=== PATIENT | male | born 1955 | race Caucasian/White ===

== ENCOUNTER 2017-05-23 14:31 | Inpatient (IN) | payer MEDICARE, OTHER ==
[~2017-05-23] VITALS: Ht 188 cm; Wt 71.2 kg
[2017-05-23] MEDS ORDERED: IV NORMAL SALINE 1000 ML BAG IV ONE ×2 (15:15→16:00)
[2017-05-23 15:30] LABS: BASOPHILS # (AUTO) 0.3 K/uL (0.0-8.0); BASOPHILS % (AUTO) 1.7 % (0.0-2.0); EOSINOPHILS # (AUTO) 0.9 K/uL (0.0-0.7); EOSINOPHILS % (AUTO) 4.9 % (0.0-7.0); HEMATOCRIT 39.1 % (40-50); HEMOGLOBIN 12.7 G/DL (14.0-18.0); LYMPHOCYTES # (AUTO) 1.5 K/UL (0.8-4.8); LYMPHOCYTES % (AUTO) 7.9 % (20.5-51.5); MEAN CORPUSCULAR HEMOGLOBIN 29.3 UUG (27.0-31.0); MEAN CORPUSCULAR HGB CONC 32 g/dL (32.0-37.0); MEAN CORPUSCULAR VOLUME 90.3 FL (82.0-92.0); MONOCYTES # (AUTO) 1.9 K/UL (0.1-1.30); MONOCYTES % (AUTO) 9.9 % (0.0-11.0); NEUTROPHILS # (AUTO) 14.2 K/UL (1.8-8.9); NEUTROPHILS % (AUTO) 75.6 % (38.5-71.5); PLATELET COUNT (AUTO) 414 K/UL (150-450); RED BLOOD CELL COUNT(AUTO) 4.32 MIL/UL (4.7-6.1); WHITE BLOOD COUNT (AUTO) 18.8 K/UL (4.0-11.2)
[2017-05-23] MEDS ORDERED: ACET650T12 PO (15:32)
[2017-05-23] MEDS ORDERED: TRAM50TA2 PO (15:32)
[2017-05-23] MEDS ORDERED: [UNRECOGNIZED DRUG - OTHER] TP (15:32)
[2017-05-23] MEDS ORDERED: RISP2TAB23 PO (15:32)
[2017-05-23] MEDS ORDERED: FAMO-132 PO (15:32)
[2017-05-23] MEDS ORDERED: CARV3.122 PO (15:32)
[2017-05-23] MEDS ORDERED: ATOR20TA PO (15:32)
[2017-05-23] MEDS ORDERED: CHOL20004 PO (15:32)
[2017-05-23] MEDS ORDERED: HYDR-3895 PO (15:32)
[2017-05-23] MEDS ORDERED: TEMA30CA PO (15:32)
[2017-05-23] MEDS ORDERED: SERT25TA PO (15:32)
[2017-05-23] MEDS ORDERED: ASPI-605 PO (15:32)
--- NOTE | 2017-05-23 15:32 | NUR ---
Pt BIB Ambulance from [facility], reports facility reports pt is lethargic, started today.
[2017-05-23 15:38] LABS: *BILIRUBIN,URIN NEGATIVE (NEGATIVE); *BLOOD, URINE Trace-lysed (NEGATIVE); *CLARITY,URINE CLEAR (CLEAR); *COLOR,URINE YELLOW (YELLOW); *KETONES,URINE NEGATIVE (NEGATIVE); *PROTEIN,URINE NEGATIVE (NEGATIVE); *UROBILINOGEN,URINE 0.2 E.U./dl (NORMAL); LEUKOCYTE ESTERASE ,URINE NEGATIVE (NEGATIVE); NITRITE, URINE NEGATIVE (NEGATIVE); PH,URINE 5.5 (5.0-8.0); UGLUCOSE NEGATIVE (NEGATIVE)
[2017-05-23 15:40] LABS: POTASSIUM 3.9 mmol/L (3.5-5.1)
[2017-05-23 15:54] LABS: BILIRUBIN,DIRECT 0.2 mg/dL (0.0-0.2); BILIRUBIN,TOTAL 0.6 mg/dL (0.2-1.0); TOTAL PROTEIN, SERUM 8.9 g/dL (6.4-8.2)
[2017-05-23 15:58] LABS: BACTERIA,URINE NONE SEEN /HPF (NONE SEEN); RBC,URINE 0-3 /HPF (0-3); SQUAMOUS EPITHELIAL CELL,UR FEW /HPF (NONE SEEN); WBC,URINE 0-3 /HPF (0-3)
[2017-05-23] MEDS ORDERED: PIPERACILLIN SODIUM/TAZOBACTAM 3.375 G in IV DEXTROSE 5% 50 ML IV ONE (16:00)
[2017-05-23] MEDS ORDERED: CEFTRIAXONE 1 G in IV DEXTROSE 5% 50 ML IV ONE (16:00)
[2017-05-23] MEDS ORDERED: CEFTRIAXONE 1 G VIAL ONE (17:28)
[2017-05-23] MEDS ORDERED: PIPERACILLIN/TAZOBACTAM/D5W 50 ML IV ONE (17:28)
--- NOTE | 2017-05-23 20:08 | NUR ---
Call placed to [facility], Dr. Hoskins will be paged.
[2017-05-23 21:34] VITALS: BP 154/87
--- NOTE | 2017-05-23 21:45 | NUR ---
PT RECEIVED FROM ED ON GURNEY ACCOMPANIED BY ER STAFF. DIAGNOSIS PNEUMONIA. OBSERVED TO BE APHASIC, DOES NOT COMMUNICATE AND PER ER STAFF PT IS DEAF, PT WAS ALSO NOT ABLE TO COMMUNICATE BY PENCIL AND PAPER. PER REPORT PT IS FROM [place] AND HAS BEEN REFUSING TO EAT, OBSERVED TO BE WEAK. HISTORY OF HTN, CONVULSIONS, PSORIASIS, AND GERD. OTHERWISE PT IS ABL TO AMBULATE WITH GUIDANCE. SKIN NOTED TO SCALY SILVER RED PATCHES ALL OVER BODY. VITAL SIGNS WNL. PT ON ROOM AIR. HEP LOCK TO LEFT FOREARM #20. NO ACUTE DISTRESS NOTED. SAFETY MEASURES PROVIDED.
[2017-05-24 00:09] VITALS: BP 117/66
[2017-05-24] MEDS ORDERED: MORPHINE SULFATE 2 MG/1 ML DISP.SYRIN IV PRN (00:45)
[2017-05-24] MEDS ORDERED: ACETAMINOPHEN 325 MG TABLET PO PRN (00:45)
[2017-05-24] MEDS ORDERED: ONDANSETRON 4 MG/2 ML VIAL IV PRN (00:45)
[2017-05-24] MEDS ORDERED: ALBUTEROL SULFATE 2.5 MG/3 ML NEBU NEB PRN (00:45)
[2017-05-24] MEDS ORDERED: ZOLPIDEM 5 MG TABLET PO PRN (00:45)
[2017-05-24] MEDS ORDERED: ACETAMINOPHEN 325 MG TABLET ONE (01:13)
--- NOTE | 2017-05-24 01:30 | NUR ---
PT IN BED SLEEPING AT THIS TIME. NORMAL SINUS ON TELE MONITOR. GIVEN TYLENOL FOR TEMP 100.7, ASYMPTOMATIC. NO ACUTE DISTRESS NOTED. WILL CONTINUE TO MONITOR FOR SAFETY.
[2017-05-24 04:00] VITALS: BP 110/69
[2017-05-24] MEDS ORDERED: PIPERACILLIN SODIUM/TAZO 3.375 GM VIAL ONE (05:39)
[2017-05-24] MEDS: PIPERACILLIN/TAZOBACTAM/D5W 3.375 G in PREMIXED 1 EACH IV SCH ×3 (05:59→21:04)
[2017-05-24 06:52] LABS: BASOPHILS # (AUTO) 0.1 K/uL (0.0-8.0); BASOPHILS % (AUTO) 0.6 % (0.0-2.0); EOSINOPHILS # (AUTO) 1.4 K/uL (0.0-0.7); EOSINOPHILS % (AUTO) 8.5 % (0.0-7.0); HEMATOCRIT 33.6 % (36.7-47.1); HEMOGLOBIN 11.2 g/dL (12.5-16.3); LYMPHOCYTES # (AUTO) 1.7 K/uL (20.0-40.0); LYMPHOCYTES % (AUTO) 10.8 % (20.5-51.5); MEAN CORPUSCULAR HEMOGLOBIN 30.2 uug (23.8-33.4); MEAN CORPUSCULAR HGB CONC 33 g/dL (32.5-36.3); MEAN CORPUSCULAR VOLUME 90.5 fL (73.0-96.2); MONOCYTES # (AUTO) 1.5 K/uL (2.0-10.0); MONOCYTES % (AUTO) 9.3 % (0.0-11.0); NEUTROPHILS # (AUTO) 11.4 K/uL (1.8-8.9); NEUTROPHILS % (AUTO) 70.8 % (38.5-71.5); PLATELET COUNT (AUTO) 362 K/uL (152-348); RED BLOOD CELL COUNT(AUTO) 3.71 MIL/uL (4.06-5.63); WHITE BLOOD COUNT (AUTO) 16.1 K/uL (3.6-10.2)
[2017-05-24 06:58] LABS: BILIRUBIN,TOTAL 0.5 mg/dL (0.2-1.0); CREATININE 0.8 mg/dL (0.6-1.3); PHOSPHOROUS 4.6 mg/dL (2.5-4.9); TOTAL PROTEIN, SERUM 7.9 g/dL (6.4-8.2)
--- NOTE | 2017-05-24 08:00 | NUR ---
alert and awake, maintains eye contact but aphasic, looks comfortable. no shortness of breath noted, tele SR, safety measures maintained, bed alarm on with call light within reach, on semi-kendall's position
[2017-05-24 08:04] LABS: THYROID STIMULATING HORMONE 2.806 mIU/mL (0.358-3.740)
[2017-05-24] MEDS: VANCOMYCIN IV 1,250 MG in IV DEXTROSE 5% 500 ML IV SCH ×2 (09:24→21:27)
[2017-05-24] MEDS ORDERED: TEMAZEPAM 30 MG CAPSULE PO PRN (11:45)
[2017-05-24] MEDS ORDERED: HYDROXYZINE PAMOATE 25 MG CAPSULE PO PRN (11:45)
[2017-05-24] MEDS ORDERED: TRAMADOL HCL 50 MG TABLET PO PRN (11:45)
[2017-05-24 11:51] VITALS: BP 92/48
--- NOTE | 2017-05-24 12:00 | NUR ---
Clinical Pharmacy Note: Vancomycin Pharmacy to Dose Subjective: To continue vancomycin in this 62 yo male for indication of pna. Objective: height : 72 '' weight: 157 lb BUN 9 Scr 0.8 Wbc 16.1 temp 98.6 Assessment/Plan Will start vancomycin 1250mg IV q13h for predicted vancomycin trough level of 15 mcg/ml at steady state. 1st dose is due today at 0900. plan to draw vancomycin trough level before 4 th dose (level not yet ordered). Will monitor renal function & adjust the dose if needed. Will continue to follow
--- NOTE | 2017-05-24 15:00 | NUR ---
seen by Dr Blanton with orders, downgraded to med/surg
[2017-05-24 15:39] VITALS: BP 97/50
[2017-05-24] MEDS: risperiDONE 2 MG TABLET PO SCH (17:09)
[2017-05-24] MEDS: CARVEDILOL 3.125 MG TABLET PO SCH (17:10)
--- NOTE | 2017-05-24 17:31 | NUR ---
resting in bed, appetite good, incontinent of urine this shift- washed and kept clean and dry, all needs attended and met, safety measures maintained, aphasic but follows commands
--- NOTE | 2017-05-24 19:30 | NUR ---
RECEIVED PATIENT LAYING IN BED. HOB ELEVATED. PATIENT IS ALERT BUT HARD TO DETERMINE ORIENTATION BECAUSE PATIENT IS APHASIC. IV ON THE RIGHT FA #20 PATENT AND INTACT. MULTIPLE RED SPOTS AND DRY ELEVATED SKIN ON LOWER EXTREMITIES AND BILATERAL ARMS NOTED. PATIENT ABLE TO TURN AND REPOSITION HIMSELF. SAFETY INITIATED. CALL LIGHT WITHIN REACH. WILL CONTINUE TO MONITOR.
[2017-05-24 20:00] VITALS: BP 107/64
[2017-05-24] MEDS: ATORVASTATIN 20 MG TABLET PO SCH (20:04)
[2017-05-24] MEDS: DOCUSATE SODIUM 100 MG CAPSULE PO SCH (20:04)
[2017-05-24] MEDS: LACTOBACILLUS RHAMNOSUS GG 1 EACH CAPSULE PO SCH (20:04)
[2017-05-24] MEDS: FAMOTIDINE 20 MG TABLET PO SCH (20:05)
[2017-05-24] MEDS ORDERED: DOCUSATE SODIUM 250 MG CAPSULE PO SCH (21:00)
[2017-05-25 04:00] VITALS: BP 119/73
[2017-05-25] MEDS: PIPERACILLIN/TAZOBACTAM/D5W 3.375 G in PREMIXED 1 EACH IV SCH ×3 (05:18→21:33)
--- NOTE | 2017-05-25 06:14 | NUR ---
PATIENT SLEPT INTERMITTENTLY T/O SHIFT. NO C/O PAIN OR SOB. SAFETY AND COMFORT MEASURES MAINTAINED T/O SHIFT. VITAL SIGNS STABLE. ALL MEDS GIVEN ORDERED. ALL NEEDS MET.
--- NOTE | 2017-05-25 08:00 | NUR ---
awke alert but aphasic, follows commands and maintains eye contact when talked to, no shortness of breath noted, denies of pain, pt with psoriasis (red dried spots on arms and lower legs ), call light within reach, bed alarm on
[2017-05-25] MEDS: LACTOBACILLUS RHAMNOSUS GG 1 EACH CAPSULE PO SCH ×2 (08:17→20:01)
[2017-05-25] MEDS: FAMOTIDINE 20 MG TABLET PO SCH ×2 (08:17→20:01)
[2017-05-25] MEDS: SERTRALINE HCL 50 MG TABLET PO SCH (08:17)
[2017-05-25] MEDS: risperiDONE 2 MG TABLET PO SCH ×2 (08:18→18:18)
[2017-05-25] MEDS: ASPIRIN EC 81 MG TABLET.DR PO SCH (08:18)
[2017-05-25] MEDS: CARVEDILOL 3.125 MG TABLET PO SCH ×2 (08:18→18:19)
[2017-05-25 11:07] VITALS: BP 98/56
[2017-05-25] MEDS: VANCOMYCIN IV 1,250 MG in IV DEXTROSE 5% 500 ML IV SCH (11:29)
--- NOTE | 2017-05-25 12:02 | NUR ---
report given to Ella RN
--- NOTE | 2017-05-25 12:05 | NUR ---
Received report from ANGELO Nolasco. Patient in bed awake, no evidence of distress noted at this time. Bed in low position, side rails up x2, bed alarm on.
--- NOTE | 2017-05-25 12:38 | NUR ---
Clinical Pharmacy Note: Vancomycin Pharmacy to Dose Subjective: To continue vancomycin in this 62 yo male for indication of pna (CAP, probably gram positive per MD note). Objective: height : 72 '' weight: 157 lb BUN 9 (05/24) Scr 0.8 (05/24) Wbc 16.1 (05/24) temp 99.3 Assessment/Plan Will continue vancomycin 1250mg IV q13h for today. 3rd dose is due today at 1100. plan to draw vancomycin trough level before 4 th dose (ordered for 05/25 at 2330-RN has been informed to hold midnight dose if level is above 20 mcg/ml). Pharmacy will check vanco trough level in am & adjust dose if needed. Will monitor renal function & adjust the dose if needed. Will continue to follow
[2017-05-25 14:08] LABS: A/G RATIO 0.4 (0.7-1.7); ALBUMIN 2.1 g/dL (2.9-4.4); ALPHA-1-GLOBULIN 0.5 g/dL (0.0-0.4); ALPHA-2-GLOBULIN 1.2 g/dL (0.4-1.0); BETA GLOBULIN 1.5 g/dL (0.7-1.3); GAMMA GLOBULIN 1.9 g/dL (0.4-1.8); M-SPIKE Not Observed g/dL (Not Observed)
[2017-05-25 15:01] VITALS: BP 111/65
--- NOTE | 2017-05-25 19:30 | NUR ---
RECEIVED PATIENT LAYING COMFORTABLY IN BED. ALERT BUT APHASIC. IV ON THE RIGHT FA PATENT AND INTACT. NOTED BILATERAL LEGS RAISED DRY SKIN. NOTED BILATERAL ARM AND LEG RED SPOTS. SAFETY INITIATED. CALL LIGHT WITHIN REACH. WILL CONTINUE TO MONITOR
[2017-05-25 19:57] VITALS: BP 93/49
[2017-05-25] MEDS: ATORVASTATIN 20 MG TABLET PO SCH (20:01)
[2017-05-25] MEDS: DOCUSATE SODIUM 100 MG CAPSULE PO SCH (20:01)
--- NOTE | 2017-05-26 00:30 | NUR ---
VANCO TROUGH IS 15.3. HANGED VANCO. INFUSING NOW. WILL CONTINUE TO MONITOR.
[2017-05-26] MEDS: VANCOMYCIN IV 1,250 MG in IV DEXTROSE 5% 500 ML IV SCH ×2 (00:49→13:59)
[2017-05-26 04:00] VITALS: BP 106/55
[2017-05-26] MEDS: PIPERACILLIN/TAZOBACTAM/D5W 3.375 G in PREMIXED 1 EACH IV SCH ×2 (05:03→13:00)
--- NOTE | 2017-05-26 05:55 | NUR ---
no changes t/o shift. patient slept well t/o the night. no acute distress noted. patient remains alert but aphasic. iv hep lock on right forearm #20. patient is able to turn and repositioned himself. dvt pumps in place. safety and comfort measures maintained t/o shift. all meds given as ordered. all needs met.
--- NOTE | 2017-05-26 07:10 | NUR ---
RECEIVED REPORT FROM ORDER CHECKER NURSE, PATIENT IN BED AWAKE, NO EVIDENCE OF DISTRESS NOTED, BED IN LOW POSITION, SIDE RAILS UP X2.
[2017-05-26] MEDS: SERTRALINE HCL 50 MG TABLET PO SCH (08:39)
[2017-05-26] MEDS: CARVEDILOL 3.125 MG TABLET PO SCH (08:40)
[2017-05-26] MEDS: risperiDONE 2 MG TABLET PO SCH (08:40)
[2017-05-26] MEDS: ASPIRIN EC 81 MG TABLET.DR PO SCH (08:40)
[2017-05-26] MEDS: FAMOTIDINE 20 MG TABLET PO SCH (08:41)
[2017-05-26] MEDS: LACTOBACILLUS RHAMNOSUS GG 1 EACH CAPSULE PO SCH (08:41)
[2017-05-26 11:01] VITALS: BP 100/53
[2017-05-26] MEDS ORDERED: DOXY100C41 PO (11:04)
[2017-05-26] MEDS ORDERED: MEGE400O PO (11:04)
--- NOTE | 2017-05-26 12:02 | NUR ---
Clinical Pharmacy Note: Vancomycin Pharmacy to Dose Subjective: To continue vancomycin in this 62 yo male for indication of pna (CAP, probably gram positive per MD note). Objective: height : 72 '' weight: 157 lb BUN 9 (05/24) Scr 0.8 (05/24) Wbc 16.1 (05/24) temp 97.9 Vanco trough level : 15.3 Assessment/Plan Will continue same dose of vancomycin 1250mg IV q13h for today since vanco trough level last night was 15.3 (within therapeutic range). Will monitor renal function & adjust the dose if needed. Will continue to follow
--- NOTE | 2017-05-26 15:00 | NUR ---
Patient instructions were reviewed with patient, IV removed and observed for bleeding (none seen). Patient was unable to sign paperwork. Called report to [facility], and transportation was given report prior to discharge from the facility. Transportation received patient without any evidence of distress, vitals stable, all belongings received.
[2017-05-26 15:36] VITALS: BP 95/52
--- NOTE | 2017-05-26 15:43 | NUR ---
Patient discharge back to [facility] side. Patient given discharge instructions. Report given.
== END 2017-05-26 14:55 | DRG 193 ==
LOC: ER 14:31 → TELE 20:56 → MED 05-24 15:36
PROVIDERS: ADMIT Internal Medicine; ATTEND Nurse Practitioner Acute Care
DX: J15.9 Unspecified bacterial pneumonia (principal); G93.41 Metabolic encephalopathy; D68.9 Coagulation defect, unspecified; E87.2 Acidosis; E44.0 Moderate protein-calorie malnutrition; E88.09 Other disorders of plasma-protein metabolism, not elsewhere classified; F50.89 Other specified eating disorder; E86.0 Dehydration; H91.3 Deaf nonspeaking, not elsewhere classified; Z68.20 Body mass index [BMI] 20.0-20.9, adult; L40.9 Psoriasis, unspecified; G40.909 Epilepsy, unspecified, not intractable, without status epilepticus; K21.9 Gastro-esophageal reflux disease without esophagitis; D64.9 Anemia, unspecified; F32.9 Major depressive disorder, single episode, unspecified; Z79.899 Other long term (current) drug therapy; I10 Essential (primary) hypertension; Z79.82 Long term (current) use of aspirin; I70.90 Unspecified atherosclerosis; Z86.73 Personal history of transient ischemic attack (TIA), and cerebral infarction without residual deficits
CPT/HCPCS: 36415; 70030-TC; 70450; 71010; 83605; 83735; 84100; 84155; 84165; 84443; 85025; 85730; 87040; 87086; 87400; 93005; A4663; J0696; J2543; J3370; J7030; J7050; J7060